=== PATIENT | male | born 1955 | race African-American/Black ===

== ENCOUNTER 2024-06-30 05:23 | Observation (INO) | payer MEDICARE ==
[2024-06-28 13:41] LABS: BASOPHILS % 0.6 % (0.0-1.0); EOSINOPHILS # (AUTO) 0.2 (0.0-0.4); EOSINOPHILS % 2.1 % (0.0-6.0); HEMATOCRIT 43.4 % (38.2-49.6); HEMOGLOBIN 12.5 g/dL (14.0-18.0); LYMPHOCYTES # (AUTO) 3.5 (1.0-3.2); LYMPHOCYTES % 49.7 % (18.0-39.1); MEAN CORPUSCULAR HGB CONC 28.8 g/dL (31-35); MEAN CORPUSCULAR VOLUME 79.9 fL (81-99); MONOCYTES # (AUTO) 0.4 (0.2-0.8); NEUTROPHILS % 42.5 % (38.7-80.0); PLATELET COUNT 273 x10e3/uL (140-360); RED BLOOD COUNT 5.43 x10e6/uL (4.3-5.7); RED CELL DISTRIBUTION WIDTH 13.2 % (11.7-14.4)
[2024-06-28 13:54] LABS: INR 0.93
[2024-06-28 14:01] LABS: ANION GAP 15.8 mmol/L (8-16); CALCIUM 10.3 mg/dL (8.4-10.2); CREATININE, SERUM 0.95 mg/dL (0.72-1.25); POTASSIUM 3.8 mmol/L (3.5-5.1)
[~2024-06-30] VITALS: Ht 182.9 cm; Wt 104.0 kg
[~2024-06-30 05:23] MED LIST: LIPITOR10 MG PO; LOSARTAN POTASS25 MG PO; METFORMIN HCL500 MG PO
[2024-06-30] MEDS: LACTATED RINGER'S 1,000 ML ONE (06:18)
[2024-06-30] MEDS ORDERED: KETAMINE HCL INJ 50 MG/ML 10 ML VIAL ONE (07:10)
[2024-06-30] MEDS ORDERED: ROCURONIUM BROMIDE 1 ML IV ONE (07:10)
[2024-06-30] MEDS ORDERED: PROPOFOL IV EMULSION 10 MG/ML 20 ML VIAL ONE (07:10)
[2024-06-30] MEDS ORDERED: FENTANYL CITRATE/PF 100MCG/2 ML INJ ONE (07:10)
[2024-06-30] MEDS ORDERED: ACETAMINOPHEN 1000 MG/100 ML 100 ML IV ONE (07:10)
[2024-06-30] MEDS ORDERED: DEXMEDETOMIDINE HCL 2 ML ONE (07:10)
[2024-06-30] MEDS ORDERED: LIDOCAINE HCL 2% LOCAL INJ 5 ML SDV VIAL INJ ONE (07:10)
[2024-06-30] MEDS ORDERED: SODIUM CHLORIDE 0.9% 100 ML ONE (07:11)
[2024-06-30] MEDS ORDERED: ONDANSETRON HCL INJ 2MG/ML 2ML 2 MG/ML VIAL ONE (07:57)
[2024-06-30] MEDS ORDERED: DEXAMETHASONE SOD PHOS INJ 4 MG/ML SDV ONE (07:57)
[2024-06-30] MEDS ORDERED: HYDROCODON-ACE1 EA12 PO (09:38)
[2024-06-30] MEDS ORDERED: ONDANSETRON HCL INJ 2MG/ML 2ML 2 MG/ML VIAL IV PRN (09:45)
[2024-06-30] MEDS ORDERED: ACETAMINOPHEN 325 MG TAB PO PRN (09:45)
[2024-06-30] MEDS ORDERED: ZOLPIDEM TARTRATE 5 MG TAB PO PRN (09:45)
[2024-06-30] MEDS ORDERED: Morphine 10mg syringe 10 MG/ML INJ IM PRN (09:45)
[2024-06-30] MEDS ORDERED: HYDROMORPHONE 2MG/ML IV PRN (09:45)
[2024-06-30] MEDS ORDERED: PROMETHAZINE HCL (IM) 25 MG/ML VIAL IM PRN (09:45)
[2024-06-30] MEDS ORDERED: MAGNESIUM/ALUMINUM/SIMETHICONE 30 ML UDC PO PRN (09:45)
[2024-06-30] MEDS: FENTANYL CITRATE/PF 100MCG/2 ML INJ IV ONE (09:57)
[2024-06-30 11:15] VITALS: BP 135/74; PULSE 68; RESP 18; TEMP 97.1; O2SAT 97
[2024-06-30] MEDS: FENTANYL CITRATE/PF 100MCG/2 ML INJ ONE (12:10)
[2024-06-30] MEDS: CEFAZOLIN SODIUM 2 GM ONE (12:11)
[2024-06-30] MEDS: LACTATED RINGER'S 1,000 ML IV SCH (12:31)
[2024-06-30] MEDS: OXYCODONE/ACETAMINOPHEN 5-325 1 EACH TABLET PO PRN (14:49)
[2024-06-30] MEDS: CARISOPRODOL 350 MG TAB PO PRN (15:00)
[2024-06-30 16:02] VITALS: BP 133/90; PULSE 88; RESP 17; TEMP 98.1; O2SAT 100
[2024-06-30] MEDS: METFORMIN HCL 500 MG TAB PO SCH (16:14)
[2024-06-30 20:00] VITALS: BP 135/76; PULSE 64; RESP 18; TEMP 97.6; O2SAT 96
[2024-06-30] MEDS: ATORVASTATIN 20 MG TAB PO SCH (21:07)
[2024-06-30] MEDS: LOSARTAN POTASSIUM 25 MG TAB PO SCH (21:08)
[2024-06-30 23:59] VITALS: BP 135/76; PULSE 64; RESP 18; TEMP 97.6; O2SAT 96
[2024-07-01 00:48] VITALS: BP 123/78; PULSE 60; RESP 17; TEMP 97.7; O2SAT 96
[2024-07-01 04:00] VITALS: BP 142/71; PULSE 52; RESP 18; TEMP 97.6; O2SAT 99
[2024-07-01 08:00] VITALS: BP 137/83; PULSE 60; RESP 18; TEMP 98; O2SAT 96
[2024-07-01 08:58] VITALS: BP 137/83; PULSE 60; RESP 18; TEMP 98; O2SAT 96
[2024-07-01] MEDS ORDERED: LOSARTAN POTASSIUM 25 MG TAB PO SCH (09:00)
== END 2024-07-01 10:40 | disposition home or self-care (01) ==
LOC: OR 05:23 → PACU V 10:02 → MED/SURG 10:35
PROVIDERS: ADMIT Neurological Surgery; ATTEND Neurological Surgery
DX: M51.16 Intervertebral disc disorders with radiculopathy, lumbar region (principal); I10 Essential (primary) hypertension; E78.5 Hyperlipidemia, unspecified; E11.9 Type 2 diabetes mellitus without complications; Z79.84 Long term (current) use of oral hypoglycemic drugs; I44.0 Atrioventricular block, first degree; I45.10 Unspecified right bundle-branch block; M19.91 Primary osteoarthritis, unspecified site; Z01.810 Encounter for preprocedural cardiovascular examination; Z01.812 Encounter for preprocedural laboratory examination; Z01.818 Encounter for other preprocedural examination; Z79.899 Other long term (current) drug therapy
CPT/HCPCS: 36415 ×3; 63030; 71046; 72020; 80048; 82948 ×2; 85025; 85610; 85730; 86850; 86900; 88304; 93005; G0378 ×2; J0131; J0690 ×2; J1100; J2003; J2405; J2704; J3010; J7050; J7121; J2270